=== PATIENT | male | born 1955 | race Caucasian/White ===

== ENCOUNTER 2020-12-18 11:48 | Day surgery (SDC) | payer BC, MEDICARE, OTHER ==
[~2020-12-18] VITALS: Ht 175.3 cm; Wt 123.0 kg
[2020-12-18] MEDS ORDERED: Aspir 8181 MG (12:52)
[2020-12-18] MEDS ORDERED: METR59TL (12:53)
[2020-12-18] MEDS ORDERED: ZYRTEC10 M2 (12:53)
[2020-12-18] MEDS ORDERED: Vitamin D2000 UNIT (12:53)
== END 2020-12-18 16:00 | disposition home or self-care (01) ==
LOC: ORSCSDS 11:48
PROVIDERS: Orthopaedic Surgery
PROC: 0SBC4ZZ Excision of Right Knee Joint, Percutaneous Endoscopic Approach (ICD-10-PCS; principal; 2020-12-18 13:20)
DX: S83.241A Other tear of medial meniscus, current injury, right knee, initial encounter (principal); E66.01 Morbid (severe) obesity due to excess calories; Z68.41 Body mass index [BMI] 40.0-44.9, adult; Z79.899 Other long term (current) drug therapy; Z79.82 Long term (current) use of aspirin
CPT/HCPCS: J0690; J1100; J1885; J2250; J2405; J2704; J3010; J7120